=== PATIENT | male | born 1975 | race Caucasian/White ===

== ENCOUNTER 2017-12-22 12:25 | Emergency (ER) | payer SELFPAY ==
[2017-12-22 12:42] VITALS: BP 115/85
--- NOTE | 2017-12-22 12:49 | ED Physician Documentation ---
Upper Extremity Problem - HISTORIAN Historian: patient - HPI Stated Complaint: Left Elbow Swelling Chief Complaint: Upper Extremity Problem Additional Information: Left elbow swelling and pain with use since November 03. Unable to work at that time 2/2 elbow. 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 No fever. Denies injury. Completed a course of clarithromycin a few days ago. [place] better for a while but now pain just above elbow. Denies systemic illness. Never had this pain before. No other modifying factors or associated signs. - ROS CONST: no problems - PAST HX Past History: none Allergies/Adverse Reactions: Allergies Allergy/AdvReac Type Severity Reaction Status Date / Time No Known Allergies Allergy Unverified 12/22/17 12:42 Home Medications: Ambulatory Orders Medication Instructions Recorded Clindamycin HCl 300 mg PO Q8H #30 capsule 12/22/17 - SOCIAL HX Smoking History: non-smoker Alcohol Use: occasionally Drug Use: none - FAMILY HX Family History: no significant history - VITAL SIGNS Vital Signs: Vital Signs Temp Pulse Resp BP Pulse Ox 96.7 F L 78 18 115/85 97 12/22/17 12:25 12/22/17 15:25 12/22/17 15:25 12/22/17 15:25 12/22/17 15:25 - REVIEWED ASSESSMENTS Nursing Assessment Reviewed: Yes Vitals Reviewed: Yes Progress - Progress Progress: Report Submission Date: Dec 22, 2017 1:18:49 PM CDT Patient Study Name: NYLA TERRAZAS Date: Dec 22, 2017 12:57:31 PM CDT Modality Type: DX Gender: M Description: UPPER EXTREMITY : 73 Institution: [facility] Physician: SLY WERNER - ANTONIO Left elbow History: Pain and swelling Three views of the left elbow were obtained which demonstrate considerable soft tissue swelling about the elbow but there is no joint effusion and no osseous abnormalities are noted. Impression: Considerable soft tissue swelling about the elbow. No osseous abnormality or joint effusion. Electronically signed on Dec 22, 2017 1:18:49 PM CDT by: Pita Fan The cause of patient's swelling is not at all clear. At one point, the arm was red with a line of demarcation - see PE. Just prior to discharge, the erythema is not present, but some warmth remains. Uric acid 3.3. No predisposing co morbidities. No injury. Now says there were two courses of clarithromycin. There is not a joint effusion of any significance. Swelling is not over the olecranon process, but rather above it. No induration or fluctuance. Will empirically treat with clindamycin. Ask him to be seen in clinic next week to see if there is positive progress. ED Results Lab/Radiology - Lab Results Lab Results: Lab Results 12/22/17 12/22/17 12/22/17 13:00 13:00 13:00 WBC Comment 9.78 thou/uL thou/uL (4.00-12.00) RBC 4.53 mil/uL mil/uL (3.80-5.80) Hemoglobin (Send Out) 13.1 g/dL g/dL (12.0-18.0) Hct (Send Out) 39.3 % % (37.0-53.0) MCV (Send Out) 86.8 fL fL (80.0-100.0) MCH 28.9 pg pg (28.0-34.0) MCHC (Send Out) 33.3 g/dL g/dL (30.0-36.0) RDW Coeff of Nadira 12.3 % % (11.3-14.7) Plt Count 326 thou/uL thou/uL (130-400) Absolute Lymphs (auto) 0.99 thou/uL thou/uL (0.60-4.00) Absolute Monos (auto) 0.49 thou/uL thou/uL (0.00-0.90) Absolute Basos (auto) 0.01 thou/uL thou/uL (0.00-0.50) Neutrophils % 80.7 % H % (39.0-79.0) Absolute Neutrophils 7.89 thou/uL H thou/uL (1.50-7.70) Lymphocytes 10.1 % L % (16.0-50.0) Monocytes 5.0 % % (0.0-11.0) Absolute Eosinophils 0.40 thou/uL thou/uL (0.00-0.60) Basophilia % 0.1 % % (0.0-1.5) ESR 15 mm/hr mm/hr (0-15) Eosinophil Count 4.1 % % (0.0-6.8) Sodium Potassium Chloride Carbon Dioxide BUN Creatinine Estimated Creat Clear Est GFR ( Amer) Est GFR (Non-Af Amer) Glucose Uric Acid Calcium Total Bilirubin AST ALT Alkaline Phosphatase C-Reactive Protein 2.49 mg/dL H mg/dL (<0.50) Total Protein Albumin Rheumatoid Factor 12/22/17 12/22/17 12/22/17 13:00 13:00 12:50 WBC Comment RBC Hemoglobin (Send Out) Hct (Send Out) MCV (Send Out) MCH MCHC (Send Out) RDW Coeff of Nadira Plt Count Absolute Lymphs (auto) Absolute Monos (auto) Absolute Basos (auto) Neutrophils % Absolute Neutrophils Lymphocytes Monocytes Absolute Eosinophils Basophilia % ESR Eosinophil Count Sodium 134 mmol/L L mmol/L (136-145) Potassium 4.2 mmol/L mmol/L (3.5-5.1) Chloride 99 mmol/L mmol/L (98-107) Carbon Dioxide 30 mmol/L mmol/L (22-30) BUN 15 mg/dL mg/dL (9-20) Creatinine 0.70 mg/dL mg/dL (0.66-1.25) Estimated Creat Clear 170 Est GFR ( Amer) > 60 (60 - ) Est GFR (Non-Af Amer) > 60 (60 - ) Glucose 111 mg/dL H mg/dL (74-106) Uric Acid 3.3 mg/dL L mg/dL (3.5-8.5) Calcium 8.3 mg/dL L mg/dL (8.4-10.2) Total Bilirubin 0.3 mg/dL mg/dL (0.2-1.3) AST 15 U/L U/L (15-46) ALT 25 U/L U/L (13-69) Alkaline Phosphatase 86 U/L U/L (38-126) C-Reactive Protein Total Protein 6.8 g/dL g/dL (6.3-8.2) Albumin 3.3 g/dL L g/dL (3.5-5.0) Rheumatoid Factor <10 IU/mL IU/mL (<14) - Orders Orders: ED Orders Category Date Time Status ELBOW 3 VIEWS [RAD] Stat Exams 12/22/17 Completed C REACTIVE PROTEIN Routine Lab 12/22/17 13:00 Completed CBC REF Routine Lab 12/22/17 13:00 Completed CMP Routine Lab 12/22/17 13:00 Completed RHEUMATOID FACTOR (RA) Stat Lab 12/22/17 12:50 Completed SEDIMENTATION RATE (ESR) Routine Lab 12/22/17 13:00 Completed URIC ACID Stat Lab 12/22/17 13:00 Completed Upper Extremity Problem - EXAM General Appearance: alert, mild distress Skin: warm/dry, normal color (except erythema from area proximal to left elbow, 8-10 cm, and distal to hand) Shoulder Exam: normal inspection, no evidence of injury Elbow/Forearm Exam: soft tissue tenderness (dorsal surface distal humerus, with swelling. No left epitrochlear or axillary nodes detected. ) Wrist Exam: normal inspection (radial pulse 2+) Hand Exam: normal inspection, no evidence of injury Neuro/Tendon: normal sensation, normal motor functions, normal tendon functions, no evidence tendon injury EENT: eye inspection normal, ENT inspection normal CVS: reg rate & rhythm, heart sounds normal Vascular: no vascular compromise Peripheral: sensation nml, motor nml Central: CN's nml as tested, motor nml, sensation nml Respiratory: no resp. distress, breath sounds nml Discharge Clincal Impression: Cellulitis Qualifiers: Site of cellulitis: extremity Site of cellulitis of extremity: upper extremity Laterality: left Qualified Code(s): L03.114 - Cellulitis of left upper limb Prescriptions: Clindamycin HCl 300 mg PO Q8H #30 capsule Referrals: Primary Doctor,No [Primary Care Provider] - 2 Days Condition: Good Disposition: 01 HOME, SELF-CARE Decision to Admit: NO Decision Time: 15:25
--- NOTE | 2017-12-22 13:25 | Diagnostic Imaging Report ---
SLY WERNER [facility] [id number] [facility].[address] [id number] Report Submission Date: Dec 22, 2017 1:18:49 PM CDT Patient Study Name: NYLA TERRAZAS Date: Dec 22, 2017 12:57:31 PM CDT Modality Type: DX Gender: M Description: UPPER EXTREMITY : 73 Institution: [facility] Physician: SLY WERNER Left elbow History: Pain and swelling Three views of the left elbow were obtained which demonstrate considerable soft tissue swelling about the elbow but there is no joint effusion and no osseous abnormalities are noted. Impression: Considerable soft tissue swelling about the elbow. No osseous abnormality or joint effusion. Electronically signed on Dec 22, 2017 1:18:49 PM CDT by: Pita ROBERSON
[2017-12-22 13:43] LABS: eGFR (Non-African) > 60
[2017-12-22 15:22] LABS: BASO % 0.1 % (0.0-1.5); EOS % 4.1 % (0.0-6.8); LYMPH ABS # 0.99 thou/uL (0.60-4.00); MCH. 28.9 pg (28.0-34.0); MCV 86.8 fL (80.0-100.0); MONOCYTE ABS # 0.49 thou/uL (0.00-0.90); PLATELET COUNT 326 thou/uL (130-400)
== END 2017-12-22 15:25 | disposition home or self-care (01) ==
LOC: ED 12:25
DX: L03.114 Cellulitis of left upper limb (principal)
CPT/HCPCS: 36415; 73080; 80053; 84550; 85025; 85651; 86140; 86431; 99283